=== PATIENT | female | born 1975 | race Caucasian/White ===

== ENCOUNTER 2016-09-10 07:29 | Emergency (ER) | payer OTHER ==
[~2016-09-10] VITALS: Ht 160 cm; Wt 65.8 kg
[~2016-09-10 07:29] MED LIST: ASPI-835 PO; LEVO25TA2 PO
[2016-09-10] MEDS ORDERED: PROCHLORPERAZINE EDISYLATE 10 MG/2 ML VIAL IV ONE (07:45)
[2016-09-10] MEDS ORDERED: IV NORMAL SALINE 1000 ML BAG IV ONE (07:45)
[2016-09-10] MEDS ORDERED: KETOROLAC TROMETHAMINE 15 MG INJ IVP ONE (07:45)
[2016-09-10] MEDS ORDERED: PROCHLORPERAZINE EDISYLATE 10 MG/2 ML VIAL ONE (07:54)
[2016-09-10] MEDS ORDERED: KETOROLAC TROMETHAMINE 15 MG INJ ONE (07:55)
[2016-09-10] MEDS ORDERED: DEXAMETHASONE SOD PHOSPHATE 10 MG INJ ONE (07:59)
[2016-09-10] MEDS ORDERED: DEXAMETHASONE SOD PHOSPHATE 4 MG INJ IV ONE (08:00)
--- NOTE | 2016-09-10 08:55 | NUR ---
IV removed. Catheter intact and site benign. Pressure and 4x4 gauze applied to site. No bleeding noted. Patient discharged to home in stable conditon. Written and verbal after care instructions given to patient. Patient verbalizes understanding of instructions. PATIENT IS "ALMOST" PAIN FREE AT THIS TIME.
== END 2016-09-10 09:01 | disposition home or self-care (01) ==
LOC: ER 07:29
DX: G43.909 Migraine, unspecified, not intractable, without status migrainosus (principal); E03.9 Hypothyroidism, unspecified; Z88.0 Allergy status to penicillin; Z79.82 Long term (current) use of aspirin
CPT/HCPCS: 96361; 96374; 96375; 99284; A4663; J0780; J1100; J1885; J7030